=== PATIENT | male | born 1945 | race African-American/Black ===

== ENCOUNTER → 2017-02-25 | Outpatient (CLI) | payer MEDICARE, BC ==
--- NOTE | 2017-02-25 10:40 | RADIOLOGY REPORT (SQ) ---
EXAM DESCRIPTION: CT CHEST WITH; CT ABD/PELVIS WITH IV ONLY COMPLETED DATE/TIME: 02/25/2017 10:01 am REASON FOR STUDY: LEUKEMIA C91.10 CHRONIC LYMPHOCYTIC LEUK OF B-CELL TYPE NOT ACHIEVE R COMPARISON: CT abdomen pelvis 05/30/2015 CONTRAST TYPE AND DOSE: 75mL Isovue 300- low osmolar. RENAL FUNCTION: Creatinine 1.6 TECHNIQUE: CT scan of the chest performed using helical scanning technique with dynamic intravenous contrast injection. Images reviewed with lung, soft tissue and bone windows. Reconstructed coronal a nd sagittal MPR images reviewed. All images stored on PACS. CT scan of the abdomen and pelvis performed with intravenous and without oral contrastusing helical s raul technique with dynamic intravenous contrast injection. Images reviewed with lung, soft tissu e and bone windows. Reconstructed coronal and sagittal MPR images reviewed. Delayed images for eval uation of the urinary system also acquired and evaluated. All images stored on PACS. All CT scanners at this facility use dose modulation, iterative reconstruction, and/or weight based d osing when appropriate to reduce radiation dose to as low as reasonably achievable (ALARA). [facility]: Dose Right [facility]: CareDose [facility]: Dose Right [facility]: Teradose 4D [facility]: [employer] RADIATION DOSE: 4.88; 17.55 mGy. LIMITATIONS: No oral contrast FINDINGS: CHEST: LUNGS AND PLEURA: No opacities, nodules, masses. No pneumothorax. No effusions. HILAR AND MEDIASTINAL STRUCTURES: No identified masses or abnormal nodes. HEART AND VASCULAR STRUCTURES: No aneurysm or dissection. No central pulmonary emboli. No pericardi al effusion. Very heavy coronary artery calcifications. HARDWARE: None. THYROID AND OTHER SOFT TISSUES: Thyroid unremarkable. In the right axilla, a 12 x 11 mm lymph node i s present on axial image 19 (was 7 x 5 mm on 05/30/2015). In the left axilla on image 19, a 10 x 9 mm lymph node is present (was 3 to 4 mm in diameter 05/30/2015). BONES: No significant finding. OTHER: No other significant finding. ABDOMEN AND PELVIS: LIVER: Normal size. No masses or dilated ducts. SPLEEN: Normal size. No focal lesions. PANCREAS: No masses. No significant calcifications. No adjacent inflammation or peripancreatic fluid collections. Pancreatic duct not dilated. GALLBLADDER: Calcified stones layer dependently in the gallbladder. ADRENAL GLANDS: No significant masses or asymmetry. RIGHT KIDNEY AND URETER: No solid masses. No significant calcification. No hydronephrosis or hydroure ter. 1 cm cyst right mid-pole kidney. LEFT KIDNEY AND URETER: No solid masses. No significant calcification. No hydronephrosis or hydrouret er. AORTA AND VESSELS: No aneurysm. No dissection. Renal arteries, SMA, celiac without stenosis. RETROPERITONEUM: No retroperitoneal adenopathy, hemorrhage or masses. BOWEL AND PERITONEAL CAVITY: No masses or inflammatory changes. No free fluid or peritoneal masses. APPENDIX: Normal. ABDOMINAL WALL: Soft tissue stranding in the right and left anterior abdominal wall axial image 44, l ikely from subcutaneous injections. Small umbilical hernia containing nonobstructed small bowel loop s. BONES: No significant or acute findings. PELVIS: Enlarged prostate indents the bladder base, best shown on delay series 8, images 78-84. IMPRESSION: Small axillary lymph nodes bilaterally. Post cholecystectomy. Small ventral hernia. No intra-abdominal or pelvic adenopathy. TECHNICAL DOCUMENTATION: JOB ID: [id number] Quality ID # 436: Final reports with documentation of one or more dose reduction techniques (e.g., Au tomated exposure control, adjustment of the mA and/or kV according to patient size, use of iterative reconstruction technique) 2010 [employer]- All Rights Reserved
== END ==
LOC: RAD 08:43
PROVIDERS: ATTEND Internal Medicine Medical Oncology
DX: C91.10 Chronic lymphocytic leukemia of B-cell type not having achieved remission (principal); K43.9 Ventral hernia without obstruction or gangrene
CPT/HCPCS: 71260; 74177; 82565

== ENCOUNTER → 2017-10-05 | Outpatient (CLI) | payer MEDICARE, BC ==
[2017-10-05 09:34] VITALS: BP 116/79
[2017-10-05 09:56] LABS: INTERNATIONAL RATION (INR) 0.85; PROTHROMBIN TIME 12.3 SEC (11.4-15.4)
[2017-10-05 09:57] LABS: HEMATOCRIT 47.5 % (37.9-51.0); HEMOGLOBIN 14.9 g/dL (13.5-17.0); MEAN CORPUSCULAR HEMOGLOBIN 25.8 pg (27.0-33.4); MEAN CORPUSCULAR HGB CONC 31.5 g/dL (32.0-36.0); MEAN CORPUSCULAR VOLUME 82 fl (80-97); PARTIAL THROMBOPLASTIN TIME 26.8 SEC (23.5-35.8); PLATELET COUNT 146 10^3/uL (150-450); RED CELL DISTRIBUTION WIDTH 15.3 % (11.5-14.0)
[2017-10-05 10:10] LABS: BLOOD UREA NITROGEN 24 mg/dL (7-20)
[2017-10-05 10:49] LABS: WHITE BLOOD COUNT 70.4 10^3/uL (4.0-10.5)
--- NOTE | 2017-10-05 14:34 | RADIOLOGY REPORT (SQ) ---
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 CONTRAST TYPE AND DOSE: contrast/concentration: Isovue 300.00 mg/ml; Total Contrast Delivered: 84.0 ml; Total Saline Delivered: 69.0 ml RENAL FUNCTION: Creatinine 1.4 TECHNIQUE: CT scan of the chest performed using helical scanning technique with dynamic intravenous contrast injection. Images reviewed with lung, soft tissue and bone windows. Reconstructed coronal a nd sagittal MPR images reviewed. All images stored on PACS. CT scan of the abdomen and pelvis performed with intravenous and with oral contrastusing helical scan brennan technique with dynamic intravenous contrast injection. Images reviewed with lung, soft tissue a nd bone windows. Reconstructed coronal and sagittal MPR images reviewed. Delayed images for evaluat ion of the urinary system also acquired and evaluated. All images stored on PACS. All CT scanners at this facility use dose modulation, iterative reconstruction, and/or weight based d osing when appropriate to reduce radiation dose to as low as reasonably achievable (ALARA). [facility]: Dose Right [facility]: CareDose [facility]: Dose Right [facility]: Teradose 4D [facility]: [employer] RADIATION DOSE: CT Rad equipment meets quality standard of care and radiation dose reduction techniq ues were employed. CTDIvol: 4.8 - 5.9 mGy. DLP: 824 mGy-cm. . LIMITATIONS: None. FINDINGS: CHEST: LUNGS AND PLEURA: No opacities, nodules, masses. No pneumothorax. No effusions. HILAR AND MEDIASTINAL STRUCTURES: Increase in size and number of supraclavicular and bilateral axilla ry adenopathy. Index right axilla lymph node at image 18, 1.4 x 1.3 cm in size (was 1.2 x 1.1 cm on 02/25/2017). Index left axillary lymph node axial image 16 1.3 x 1.1 cm in size (was 1.0 x 0.9 cm in size on 02/25/2017. HEART AND VASCULAR STRUCTURES: No aneurysm or dissection. No central pulmonary emboli. No pericardi al effusion. Very heavily calcified coronary arteries. HARDWARE: None. THYROID : No masses. BONES: No significant finding. OTHER: No other significant finding. ABDOMEN AND PELVIS: LIVER: Normal size. No masses. No dilated ducts. SPLEEN: Normal size. No focal lesions. PANCREAS: No masses. No significant calcifications. No adjacent inflammation or peripancreatic fluid collections. Pancreatic duct not dilated. GALLBLADDER: Gallstones. No inflammatory changes to suggest cholecystitis. ADRENAL GLANDS: No significant masses or asymmetry. RIGHT KIDNEY AND URETER: No solid masses. 1 cm cyst right mid-pole kidney. No significant calcifica tion. No hydronephrosis or hydroureter. LEFT KIDNEY AND URETER: No solid masses. No significant calcification. No hydronephrosis or hydrouret er. AORTA AND VESSELS: No aneurysm. No dissection. Renal arteries, SMA, celiac without stenosis. RETROPERITONEUM: No retroperitoneal adenopathy, hemorrhage or masses. BOWEL AND PERITONEAL CAVITY: No masses or inflammatory changes. No free fluid or peritoneal masses. APPENDIX: Normal. ABDOMINAL WALL: No hernia. There is stranding of the periumbilical fat in the anterior abdominal wal l, chronic in appearance. This could be post therapeutic change or could be related to subcutaneous injection BONES: No significant or acute findings. PELVIS: Prostate is enlarged, 7 cm in greatest diameter, indenting the bladder base. No pelvic mike opathy. No free pelvic fluid. IMPRESSION: Increase in size of multiple axillary, supraclavicular, and lower cervical lymph nodes c ompared to previous studies No adenopathy or worrisome soft tissue masses over the abdomen or pelvis. TECHNICAL DOCUMENTATION: JOB ID: [id number] Quality ID # 436: Final reports with documentation of one or more dose reduction techniques (e.g., Au tomated exposure control, adjustment of the mA and/or kV according to patient size, use of iterative reconstruction technique) 2010 [employer]- All Rights Reserved
== END ==
LOC: RAD 09:02 → EDSTATUS 10:45
PROVIDERS: ATTEND Internal Medicine Medical Oncology
DX: C91.10 Chronic lymphocytic leukemia of B-cell type not having achieved remission (principal); I25.10 Atherosclerotic heart disease of native coronary artery without angina pectoris; E78.5 Hyperlipidemia, unspecified
CPT/HCPCS: 36415; 71260; 74177; 82565; 84520; 85027; 85610; 85730

== ENCOUNTER 2017-10-07 06:53 | Day surgery (SDC) | payer MEDICARE, BC ==
[2017-10-07 08:15] LABS: HEMATOCRIT 45.7 % (37.9-51.0); HEMOGLOBIN 14.5 g/dL (13.5-17.0); MEAN CORPUSCULAR HEMOGLOBIN 26.1 pg (27.0-33.4); MEAN CORPUSCULAR HGB CONC 31.8 g/dL (32.0-36.0); MEAN CORPUSCULAR VOLUME 82 fl (80-97); PLATELET COUNT 119 10^3/uL (150-450); RED BLOOD COUNT 5.56 10^6/uL (4.35-5.55); RED CELL DISTRIBUTION WIDTH 15.2 % (11.5-14.0)
[2017-10-07 08:19] LABS: WHITE BLOOD COUNT 69.4 10^3/uL (4.0-10.5)
[2017-10-07 08:21] LABS: PROTHROMBIN TIME 12.8 SEC (11.4-15.4)
[2017-10-07 08:22] LABS: PARTIAL THROMBOPLASTIN TIME 26.6 SEC (23.5-35.8)
[2017-10-07 08:31] LABS: BLOOD UREA NITROGEN 27 mg/dL (7-20); GLUCOSE 188 mg/dL (75-110)
[2017-10-07 08:44] LABS: ABSOLUTE LYMPHOCYTES# (MANUAL) 63.2 10^3/uL (0.5-4.7); ABSOLUTE MONOCYTES # (MANUAL) 2.8 10^3/uL (0.1-1.4); ABSOLUTE NEUTROPHILS# (MANUAL) 3.5 10^3/uL (1.7-8.2); BASOPHILS % (MANUAL) 0 % (0-2); EOSINOPHILS % (MANUAL) 0 % (0-6); LYMPHOCYTES % (MANUAL) 91 % (13-45); MONOCYTES % (MANUAL) 4 % (3-13); SEGMENTED NEUTROPHILS % (MAN) 5 % (42-78); TOTAL CELLS COUNTED 100
[2017-10-07 08:45] LABS: OVALOCYTES 1+; PLATELET COMMENT DECREASED; POIKILOCYTOSIS 1+
[2017-10-07] MEDS ORDERED: FENTANYL CITRATE INJ/PF 100 MCG/2 ML AMPUL ONE (10:41)
[2017-10-07] MEDS ORDERED: MIDAZOLAM 2 MG/2 ML INJ ONE (10:41)
--- NOTE | 2017-10-07 11:50 | RADIOLOGY REPORT (SQ) ---
EXAM DESCRIPTION: CT BIOPSY BONE DEEP; CT NEEDLE PLACEMENT COMPLETED DATE/TIME: 10/07/2017 11:19 am; 10/07/2017 11:16 am REASON FOR STUDY: CHRONIC LYMPHOCYTIC LEUKEMIA C91.10 CHRONIC LYMPHOCYTIC LEUK OF B-CELL TYPE NOT A FLAVIO Quezada Z79.899 OTHER RESIDENTIAL (CURRENT) DRUG THERAPY Z79.01 RESIDENTIAL (CURRENT) USE OF ANTICOAGU LANTS COMPARISON: None. TECHNIQUE: CT guided biopsy of the posterior right iliac crest performed with conscious sedation. CT Fluoroscopy Time: [address] scanners at this facility use dose modulation, iterative reconstruction, and/or weight based d osing when appropriate to reduce radiation dose to as low as reasonably achievable (ALARA). [facility]: Dose Right [facility]: CareDose [facility]: Dose Right [facility]: Teradose 4D [facility]: [employer] RADIATION DOSE: mGy. FINDINGS: The procedure was discussed with the patient and the patient agreed to the procedure. Prio r to the procedure, a time out was performed to verify the patient's identity and planned procedure. IV sedation was administered and physician direction by the registered nurse using 1 milligrams of Ve rsed and 75 micrograms of fentanyl. Physiologic monitoring was provided before, during, and after sed ation. The total sedation time was 30 minutes. Documentation face to face time, the performing proceduralist, spent monitoring the patient: [address] scanning was performed to localize the percutaneous site for the biopsy approach. After sterile skin prep and local lidocaine for skin and deep tissue anesthesia, a 14 gauge bone biop sy needle was used to obtain an aspirate and core of medullary bone from the posterior right iliac cr est. The biopsy tissue was submitted to Mana from cytology. There were no immediate complications. Pathology is pending at the time of dictation. IMPRESSION: CT GUIDED BIOPSY OF THE POSTERIOR RIGHT ILIAC CREST PERFORMED WITHOUT IMMEDIATE COMPLICA TION. PATHOLOGY PENDING. COMMENT: Quality ID 145: Final reports for procedures using fluoroscopy that document radiation exp osure indices, or exposure time and number of fluorographic images (if radiation exposure indices are not available) Patient medication list reviewed: Yes- Quality ID# [id number]:Eligible professional attests to documenting i n the medical record they obtained, updated, or reviewed the patient's current medications.. TECHNICAL DOCUMENTATION: JOB ID: [id number] Quality ID# 436: Final reports with documentation of one or more dose reduction techniques (e.g., Aut omated exposure control, adjustment of the mA and/or kV according to patient size, use of iterative r econstruction technique) 2010 [employer]- All Rights Reserved
--- NOTE | 2017-10-07 11:50 | RADIOLOGY REPORT (SQ) ---
EXAM DESCRIPTION: CT BIOPSY BONE DEEP; CT NEEDLE PLACEMENT COMPLETED DATE/TIME: 10/07/2017 11:19 am; 10/07/2017 11:16 am REASON FOR STUDY: CHRONIC LYMPHOCYTIC LEUKEMIA C91.10 CHRONIC LYMPHOCYTIC LEUK OF B-CELL TYPE NOT A FLAVIO Quezada Z79.899 OTHER [facility] (CURRENT) DRUG THERAPY Z79.01 [facility] (CURRENT) USE OF ANTICOAGU LANTS COMPARISON: None. TECHNIQUE: CT guided biopsy of the posterior right iliac crest performed with conscious sedation. CT Fluoroscopy Time: [address] scanners at this facility use dose modulation, iterative reconstruction, and/or weight based d osing when appropriate to reduce radiation dose to as low as reasonably achievable (ALARA). [facility]: Dose Right [facility]: CareDose [facility]: Dose Right [facility]: Teradose 4D [facility]: [employer] RADIATION DOSE: mGy. FINDINGS: The procedure was discussed with the patient and the patient agreed to the procedure. Prio r to the procedure, a time out was performed to verify the patient's identity and planned procedure. IV sedation was administered and physician direction by the registered nurse using 1 milligrams of Ve rsed and 75 micrograms of fentanyl. Physiologic monitoring was provided before, during, and after sed ation. The total sedation time was 30 minutes. Documentation face to face time, the performing proceduralist, spent monitoring the patient: [address] scanning was performed to localize the percutaneous site for the biopsy approach. After sterile skin prep and local lidocaine for skin and deep tissue anesthesia, a 14 gauge bone biop sy needle was used to obtain an aspirate and core of medullary bone from the posterior right iliac cr est. The biopsy tissue was submitted to Mana from cytology. There were no immediate complications. Pathology is pending at the time of dictation. IMPRESSION: CT GUIDED BIOPSY OF THE POSTERIOR RIGHT ILIAC CREST PERFORMED WITHOUT IMMEDIATE COMPLICA TION. PATHOLOGY PENDING. COMMENT: Quality ID 145: Final reports for procedures using fluoroscopy that document radiation exp osure indices, or exposure time and number of fluorographic images (if radiation exposure indices are not available) Patient medication list reviewed: Yes- Quality ID# [id number]:Eligible professional attests to documenting i n the medical record they obtained, updated, or reviewed the patient's current medications.. TECHNICAL DOCUMENTATION: JOB ID: [id number] Quality ID# 436: Final reports with documentation of one or more dose reduction techniques (e.g., Aut omated exposure control, adjustment of the mA and/or kV according to patient size, use of iterative r econstruction technique) 2010 [employer]- All Rights Reserved
[2017-10-07 13:39] VITALS: BP 120/73
== END 2017-10-07 13:30 | disposition home or self-care (01) ==
LOC: RAD 06:53
PROVIDERS: ATTEND Internal Medicine Medical Oncology
PROC: 0QB23ZX Excision of Right Pelvic Bone, Percutaneous Approach, Diagnostic (ICD-10-PCS; principal; 2017-10-07)
DX: C91.10 Chronic lymphocytic leukemia of B-cell type not having achieved remission (principal); Z79.899 Other long term (current) drug therapy; Z79.01 Long term (current) use of anticoagulants
CPT/HCPCS: 36415; 84520; 82565; 82947; 85025; 85610; 85730; 77012; 20225; J2250; J3010

== ENCOUNTER → 2018-06-23 | Outpatient (CLI) | payer MEDICARE, BC ==
--- NOTE | 2018-06-23 14:39 | RADIOLOGY REPORT (SQ) ---
EXAM DESCRIPTION: U/S RETROPERITON (RENAL/AORTA) COMPLETED DATE/TIME: 06/23/2018 2:27 pm REASON FOR STUDY: CKD II (N18.2), DIABETES (E11.9), HTN (I10) N18.2 CHRONIC KIDNEY DISEASE, STAGE 2 (MILD) COMPARISON: CT abdomen pelvis 10/05/2017 TECHNIQUE: Dynamic and static grayscale images acquired of the kidneys and bladder and recorded on P ACS. Additional selected color Doppler and spectral images recorded. LIMITATIONS: None. FINDINGS: RIGHT KIDNEY: Normal size, 11.4 cm. Normal echogenicity. No solid or suspicious masses. No hydronephrosis. No calcifications. LEFT KIDNEY: Normal size, 11.1 cm. Normal echogenicity. No solid or suspicious masses. No hydronephr osis. No calcifications. BLADDER: No masses. OTHER FINDINGS: Enlarged prostate, 7 x 5 x 4 cm in size, similar compared to CT abdomen and pelvis 10/05/2017 IMPRESSION: No hydronephrosis. Normal size kidneys. TECHNICAL DOCUMENTATION: JOB ID: [id number] 1876 [employer]- All Rights Reserved Reading location - IP/workstation name: [facility], [facility]
== END ==
LOC: RAD 13:33
PROVIDERS: ATTEND Internal Medicine Nephrology
DX: I12.9 Hypertensive chronic kidney disease with stage 1 through stage 4 chronic kidney disease, or unspecified chronic kidney disease (principal); N18.2 Chronic kidney disease, stage 2 (mild); E11.22 Type 2 diabetes mellitus with diabetic chronic kidney disease; C91.90 Lymphoid leukemia, unspecified not having achieved remission
CPT/HCPCS: 76770

== ENCOUNTER → 2018-07-17 | Outpatient (CLI) | payer MEDICARE, BC ==
[2018-07-17 08:58] LABS: HEMATOCRIT 44.5 % (37.9-51.0); HEMOGLOBIN 14.7 g/dL (13.5-17.0); MEAN CORPUSCULAR HEMOGLOBIN 26.8 pg (27.0-33.4); MEAN CORPUSCULAR HGB CONC 33.1 g/dL (32.0-36.0); MEAN CORPUSCULAR VOLUME 81 fl (80-97); PLATELET COUNT 128 10^3/uL (150-450); WHITE BLOOD COUNT 6.9 10^3/uL (4.0-10.5)
[2018-07-17 09:02] LABS: APPEARANCE,URINE CLEAR; BILIRUBIN,URINE NEGATIVE (NEGATIVE); COLOR,URINE YELLOW; GLUCOSE, URINE >=500 mg/dL (NEGATIVE); KETONES,URINE NEGATIVE (NEGATIVE); LEUKOCYTE ESTERASE,URINE NEGATIVE (NEGATIVE); NITRITE,URINE NEGATIVE (NEGATIVE); PROTEIN,URINE 100 mg/dL (NEGATIVE); URINE SPECIFIC GRAVITY 1.024; UROBILINOGEN,URINE NEGATIVE mg/dL (<2.0)
[2018-07-17 09:23] LABS: ALBUMIN 4.4 g/dL (3.5-5.0); ANION GAP 12 (5-19); BLOOD UREA NITROGEN 25 mg/dL (7-20); CALCIUM 9.9 mg/dL (8.4-10.2); CARBON DIOXIDE 27 mmol/L (22-30); CHLORIDE 101 mmol/L (98-107); GLUCOSE 131 mg/dL (75-110); PHOSPHORUS 3.8 mg/dL (2.5-4.5); POTASSIUM 4.4 mmol/L (3.6-5.0); SODIUM 140.3 mmol/L (137-145)
[2018-07-17 09:49] LABS: ABSOLUTE LYMPHOCYTES# (MANUAL) 3.6 10^3/uL (0.5-4.7); ABSOLUTE MONOCYTES # (MANUAL) 0.6 10^3/uL (0.1-1.4); ABSOLUTE NEUTROPHILS# (MANUAL) 2.7 10^3/uL (1.7-8.2); BASOPHILS % (MANUAL) 0 % (0-2); EOSINOPHILS % (MANUAL) 0 % (0-6); LYMPHOCYTES % (MANUAL) 45 % (13-45); MONOCYTES % (MANUAL) 9 % (3-13); SEGMENTED NEUTROPHILS % (MAN) 39 % (42-78); TOTAL CELLS COUNTED 100
[2018-07-17 09:50] LABS: ANISOCYTOSIS SLIGHT; HYPOCHROMASIA SLIGHT; PLATELET COMMENT DECREASED
[2018-07-19 03:36] LABS: CREATININE URINE 114.1 mg/dL (Not Estab.); MICROALBUMIN URINE 242.9 ug/mL (Not Estab.)
== END ==
LOC: OD 08:13
PROVIDERS: ATTEND Internal Medicine Nephrology
DX: N18.2 Chronic kidney disease, stage 2 (mild) (principal); E11.9 Type 2 diabetes mellitus without complications; C91.90 Lymphoid leukemia, unspecified not having achieved remission; I10 Essential (primary) hypertension
CPT/HCPCS: 36415; 80048; 81001; 82040; 82043; 82306; 82570; 83970; 84100; 85025

== ENCOUNTER → 2018-12-27 | Outpatient (CLI) | payer MEDICARE, BC ==
[2018-12-27 09:48] LABS: APPEARANCE,URINE CLEAR; BILIRUBIN,URINE NEGATIVE (NEGATIVE); COLOR,URINE YELLOW; GLUCOSE, URINE >=500 mg/dL (NEGATIVE); KETONES,URINE NEGATIVE (NEGATIVE); LEUKOCYTE ESTERASE,URINE NEGATIVE (NEGATIVE); NITRITE,URINE NEGATIVE (NEGATIVE); PROTEIN,URINE 30 mg/dL (NEGATIVE); URINE SPECIFIC GRAVITY 1.024; UROBILINOGEN,URINE NEGATIVE mg/dL (<2.0)
[2018-12-27 10:27] LABS: ANION GAP 9 (5-19); BLOOD UREA NITROGEN 35 mg/dL (7-20); CALCIUM 10.4 mg/dL (8.4-10.2); CARBON DIOXIDE 29 mmol/L (22-30); CHLORIDE 101 mmol/L (98-107); GLUCOSE 147 mg/dL (75-110); POTASSIUM 4.4 mmol/L (3.6-5.0); SODIUM 139.1 mmol/L (137-145)
[2018-12-28 14:38] LABS: CREATININE URINE 90.1 mg/dL (Not Estab.); MICROALBUMIN URINE 174.1 ug/mL (Not Estab.)
== END ==
LOC: OD 08:54
PROVIDERS: ATTEND Internal Medicine Nephrology
DX: I12.9 Hypertensive chronic kidney disease with stage 1 through stage 4 chronic kidney disease, or unspecified chronic kidney disease (principal); E11.22 Type 2 diabetes mellitus with diabetic chronic kidney disease; N18.2 Chronic kidney disease, stage 2 (mild); R80.9 Proteinuria, unspecified
CPT/HCPCS: 36415; 80048; 81001; 82043; 82306; 82570

== ENCOUNTER 2019-04-06 11:32 | Observation (INO) | payer MEDICARE, BC ==
--- NOTE | 2019-04-06 12:00 | ER Document Report ---
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 Patient reports his calcium was 12.2. He also had an elevated white blood count however he is a CLL patient. Patient is asymptomatic and denies any complaints today. Exam: Patient alert, oriented, answering all questions appropriately. Ambulates with a steady gait. I have greeted and performed a rapid initial assessment of this patient. A comprehensive ED assessment and evaluation of the patient, analysis of test results and completion of the medical decision making process will be conducted by additional ED providers. I have specifically instructed the patient or family members with the patient to immediately return to any nursing staff should anything change in the patient's condition or with their chief complaint. This medical record was dictated with voice recognizing software. There may be grammatical, syntax errors that are unintended. TRAVEL OUTSIDE OF THE [place] IN LAST 30 DAYS: No - Related Data Allergies/Adverse Reactions: No Known Allergies Allergy (Verified 04/06/19 11:34) Past Medical History - Past Medical History Cardiac Medical History: Reports: Hx Coronary Artery Disease - CHOLESTEROL ELEVATED, Hx Hypertension - CONTROLLED Denies: Hx Heart Attack Pulmonary Medical History: Denies: Hx Asthma, Hx Bronchitis, Hx COPD, Hx Pneumonia Neurological Medical History: Denies: Hx Cerebrovascular Accident, Hx Seizures GI Medical History: Denies: Hx Hepatitis, Hx Hiatal Hernia, Hx Ulcer Musculoskeltal Medical History: Reports Hx Arthritis Infectious Medical History: Denies: Hx Hepatitis Past Surgical History: Denies: Hx Open Heart Surgery, Hx Pacemaker - Immunizations Hx Diphtheria, Pertussis, Tetanus Vaccination: No History of Influenza Vaccine for 06/2017 - 11/2017 Season: Yes Physical Exam - Vital signs Vitals: Temp Pulse Resp BP Pulse Ox 97.7 F 98 16 126/67 H 100 04/06/19 11:34 04/06/19 11:34 04/06/19 11:34 04/06/19 11:34 04/06/19 11:34 Course - Vital Signs Vital signs: Temp Pulse Resp BP Pulse Ox 97.7 F 98 16 126/67 H 100 04/06/19 11:34 04/06/19 11:34 04/06/19 11:34 04/06/19 11:34 04/06/19 11:34 Doctor's Discharge - Discharge Referrals: SANAM DAS MD [Primary Care Provider] - Follow up as needed
[2019-04-06 12:33] LABS: HEMATOCRIT 45.5 % (37.9-51.0); HEMOGLOBIN 14.2 g/dL (13.5-17.0); MEAN CORPUSCULAR HEMOGLOBIN 24.8 pg (27.0-33.4); MEAN CORPUSCULAR HGB CONC 31.2 g/dL (32.0-36.0); MEAN CORPUSCULAR VOLUME 80 fl (80-97); RED BLOOD COUNT 5.72 10^6/uL (4.35-5.55); RED CELL DISTRIBUTION WIDTH 15.9 % (11.5-14.0)
[2019-04-06 12:48] LABS: ALANINE AMINOTRANSFERASE 70 U/L (21-72); ALBUMIN 4.6 g/dL (3.5-5.0); ALKALINE PHOSPHATASE 85 U/L (38-126); ANION GAP 10 (5-19); ASPARTATE AMINO TRANSFERASE 56 U/L (17-59); BILIRUBIN,DIRECT 0.2 mg/dL (0.0-0.4); BILIRUBIN,TOTAL 0.5 mg/dL (0.2-1.3); BLOOD UREA NITROGEN 31 mg/dL (7-20); CARBON DIOXIDE 29 mmol/L (22-30); CHLORIDE 102 mmol/L (98-107); GLUCOSE 117 mg/dL (75-110); POTASSIUM 4.4 mmol/L (3.6-5.0); SODIUM 141.4 mmol/L (137-145); TOTAL PROTEIN 7.4 g/dL (6.3-8.2)
[2019-04-06 12:50] LABS: PLATELET COUNT 72 10^3/uL (150-450)
[2019-04-06 12:57] LABS: CALCIUM 12.5 mg/dL (8.4-10.2)
[2019-04-06 12:58] LABS: ABSOLUTE LYMPHOCYTES# (MANUAL) 79.1 10^3/uL (0.5-4.7); BASOPHILS % (MANUAL) 0 % (0-2); EOSINOPHILS % (MANUAL) 0 % (0-6); LYMPHOCYTES % (MANUAL) 92 % (13-45); MONOCYTES % (MANUAL) 0 % (3-13); SEGMENTED NEUTROPHILS % (MAN) 8 % (42-78); TOTAL CELLS COUNTED 100
[2019-04-06 13:00] LABS: PLATELET COMMENT DECREASED
[2019-04-06 13:01] LABS: ANISOCYTOSIS SLIGHT; OVALOCYTES SLIGHT; PLATELET LARGE PRESENT; TEAR DROP CELLS SLIGHT
[2019-04-06] MEDS ORDERED: NORMAL SALINE 1000 ML 1,000 ML IV ONE (13:27)
--- NOTE | 2019-04-06 13:53 | ER Document Report ---
ED General - General Chief Complaint: Abnormal Lab Results Stated Complaint: ABNORMAL LABS Time Seen by Provider: 04/06/19 11:57 Mode of Arrival: Ambulatory Notes: Patient was instructed to come to the emergency department because he had some abnormal outpatient labs. Patient had blood drawn this morning and his phys ician called him to tell him to come to the emergency department. He had an elevated WBC of 80,000, but the patient is known to have chronic lymphocytic leukemia. He has been under the care of Dr. Laws, local oncologist, but the patient says he has not had a chemo treatment since last year. Patient also was told that his calcium is high and it was 12.7. Speaking with Dr. Merlos, patient's primary care provider, patient had a WBC of about 60,000 a couple of weeks ago and his calcium was in the low 11's. Patient denies having any symptoms. No upset stomach or nausea or vomiting. No muscular jerks or twitches. No loss of consciousness. Denies any chest pains. TRAVEL OUTSIDE OF THE [place] IN LAST 30 DAYS: No - Related Data Allergies/Adverse Reactions: No Known Allergies Allergy (Verified 04/06/19 11:34) Past Medical History - General Information source: Patient - Social History Smoking Status: Never Smoker Chew tobacco use (# tins/day): No Frequency of alcohol use: None Drug Abuse: None Family History: Reviewed & Not Pertinent Patient has suicidal ideation: No Patient has homicidal ideation: No - Past Medical History Cardiac Medical History: Reports: Hx Coronary Artery Disease - CHOLESTEROL ELEVATED, Hx Hypertension - CONTROLLED Denies: Hx Heart Attack Musculoskeletal Medical History: Reports Hx Arthritis Infectious Medical History: Denies: Hx Hepatitis Past Surgical History: Reports: Hx Cardiac Catheterization - Immunizations Hx Diphtheria, Pertussis, Tetanus Vaccination: No Review of Systems - Review of Systems Notes: REVIEW OF SYSTEMS: CONSTITUTIONAL : Denies fever. EENT: Denies eye, ear, nose or mouth or throat pain or other symptoms. CARDIOVASCULAR: Denies chest pain. RESPIRATORY: Denies cough, chest congestion, or shortness of breath. GASTROINTESTINAL: Denies abdominal pain or nausea, vomiting, or diarrhea. GENITOURINARY: Denies difficulty or painful urinating, urinary frequency, blood in urine. MUSCULOSKELETAL: Denies back or neck pain. Denies joint pain or swelling. SKIN: Denies rash or skin lesions. NEUROLOGICAL: Denies LOC or altered mental status. Denies headache. Denies sensory loss or motor deficits. ALL OTHER SYSTEMS REVIEWED AND NEGATIVE. Physical Exam - Vital signs Vitals: Temp Pulse Resp BP Pulse Ox 97.7 F 98 16 126/67 H 100 04/06/19 11:34 04/06/19 11:34 04/06/19 11:34 04/06/19 11:34 04/06/19 11:34 Interpretation: Normal Notes: PHYSICAL EXAMINATION: GENERAL: Well-appearing, in no acute distress. Vital signs are all normal. HEAD: Atraumatic, normocephalic. EYES: Pupils equal round and reactive to light, extraocular movements intact. ENT: oropharynx clear without exudates. Moist mucous membranes. NECK: Normal range of motion, supple. LUNGS: Breath sounds clear and equal bilaterally. HEART: Regular rate and rhythm without murmurs. ABDOMEN: Soft, nontender. No guarding or rebound. No masses. BACK: No tenderness throughout entire back. EXTREMITIES: Normal range of motion without pain. NEUROLOGICAL: Normal speech, normal gait. Normal sensory, motor, and reflex exams. Awake, alert, and oriented x3. Cranial nerves normal. PSYCH: Normal mood, normal affect. SKIN: Warm, dry, no rashes. Course - Re-evaluation Re-evalutation: 04/06/19 13:[address] Merlos and he will admit the patient for saline hydration to try to lower the calcium. He will follow the patient's WBC along with his oncologist. - Vital Signs Vital signs: Temp Pulse Resp BP Pulse Ox 97.7 F 98 15 104/66 95 04/06/19 11:34 04/06/19 11:34 04/06/19 13:01 04/06/19 13:01 04/06/19 13:01 - Laboratory Result Diagrams: 04/06/19 12:15 04/06/19 12:15 Laboratory results interpreted by me: 04/06/19 04/06/19 12:15 12:15 WBC 86.0 H* RBC 5.72 H MCH 24.8 L MCHC 31.2 L RDW 15.9 H Plt Count 72 L Seg Neuts % (Manual) 8 L Lymphocytes % (Manual) 92 H Monocytes % (Manual) 0 L Abs Lymphs (Manual) 79.1 H Abs Monocytes (Manual) 0.0 L BUN 31 H Creatinine 1.68 H Est GFR ( Amer) 49 L Est GFR (Non-Af Amer) 40 L Glucose 117 H Calcium 12.5 H* Discharge - Discharge Clinical Impression: Chronic lymphocytic leukemia, Hypercalcemia Condition: Stable Disposition: ADMITTED OBSERVATION Admitting Provider: [facility] Unit Admitted: Medical Floor
[2019-04-06] MEDS ORDERED: (PENDING PHARMACY ID) (Glimepiride [Glimepiride] 2 MG) PO SCH (17:00)
[2019-04-06] MEDS ORDERED: (PENDING PHARMACY ID) (Losartan/Hydrochlorothiazide [Hyzaar 100-12.5 Tablet] 1 EACH) PO SCH (17:00)
[2019-04-06] MEDS ORDERED: (PENDING PHARMACY ID) (Empagliflozin [Jardiance] 25 MG) PO SCH (17:00)
[2019-04-06] MEDS ORDERED: INSULIN DETEMIR 20 UNIT SQ SCH (17:00)
[2019-04-06] MEDS ORDERED: (PENDING PHARMACY ID) (Metformin Hcl [Metformin Hcl] 1,000 MG) PO SCH (17:00)
[2019-04-06] MEDS ORDERED: INSULIN GLARGINE,HUM.REC.ANLOG 1,000 UNIT/10 ML VIAL (PYX) SUBCUT ONE (17:30)
[2019-04-06 17:52] LABS: INTERNATIONAL RATION (INR) 0.92; PARTIAL THROMBOPLASTIN TIME 25.1 SEC (23.5-35.8); PROTHROMBIN TIME 12.4 SEC (11.4-15.4)
[2019-04-06 18:00] LABS: LIPASE 109.8 U/L (23-300)
[2019-04-06] MEDS: ENOXAPARIN SODIUM INJ 40 MG/0.4 ML DISP.SYRIN SUBCUT SCH (18:03)
[2019-04-06] MEDS: METOPROLOL SUCCINATE 25 MG TAB.SR.24H PO SCH (18:04)
[2019-04-06] MEDS: LOSARTAN POTASSIUM 50 MG TABLET PO SCH (18:05)
[2019-04-06] MEDS: HYDROCHLOROTHIAZIDE 12.5 MG TABLET PO SCH (18:05)
[2019-04-06] MEDS: ASPIRIN 81 MG TABLET, ENT COATED PO SCH (18:10)
[2019-04-06] MEDS: TAMSULOSIN HCL 0.4 MG CAP.SR.24H PO SCH (18:12)
[2019-04-06] MEDS: METFORMIN HCL 500 MG TABLET PO SCH (18:12)
[2019-04-06] MEDS: FAMOTIDINE 20 MG TABLET PO SCH (18:12)
[2019-04-06] MEDS: CLOPIDOGREL BISULFATE 75 MG TABLET PO SCH (18:12)
[2019-04-06] MEDS: NORMAL SALINE 1000 ML 1,000 ML IV PRN (18:12)
[2019-04-06 18:14] LABS: CREATINE KINASE MB 1.06 ng/mL (<4.55)
[2019-04-06 18:17] LABS: FREE T4 (FREE THYROXINE) 1.18 ng/dL (0.78-2.19); TROPONIN I < 0.012 ng/mL
[2019-04-06] MEDS: GLIMEPIRIDE 1 MG TABLET PO SCH (18:22)
[2019-04-06 18:31] LABS: THYROID STIMULATING HORMONE 1.85 uIU/mL (0.47-4.68)
[2019-04-06] MEDS ORDERED: PAMIDRONATE DISODIUM INJ 30 MG/10 ML VIAL IV ONE (18:35)
--- NOTE | 2019-04-06 18:45 | PDOC H&P ---
History of Present Illness Admission Date/PCP: 04/06/19 14:00 SANAM DAS MD History of Present Illness: NADIA RENTERIA is a 73 year old male, He has a history of chronic lymphocytic leukemia, diabetes mellitus type 2,, he had outpatient blood work drawn by the salesforce administrator, the serum calcium was 12, the white cell count was 85,000 because of the abnormal laboratory data, patient was called by the salesforce administrator for him to go to the emergency room in the emergency room was evaluated blood work revealed a pack acidemia with a serum calcium of 12 WBC was 8000. The intact PTH was low suggesting that the hypercalcemia is related to the CLL. But patient is not symptomatic Past Medical History Cardiac Medical History: Reports: Coronary Artery Disease - CHOLESTEROL ELEVATED, Hypertension - CONTROLLED Musculoskeltal Medical History: Reports: Arthritis Hematology: Reports: Anemia - CLL Past Surgical History Past Surgical History: Reports: Cardiac Catheterization Social History Smoking Status: Never Smoker Frequency of Alcohol Use: None Hx Recreational Drug Use: No Drugs: None Hx Prescription Drug Abuse: No Family History Family History: Reviewed & Not Pertinent Parental Family History Reviewed: Yes Children Family History Reviewed: Yes Sibling(s) Family History Reviewed.: Yes Medication/Allergy Home Medications: Aspirin [Ecotrin] 81 mg PO DAILY 08/16/14 RX: Simvastatin 40 mg PO QHS 08/16/14 Clopidogrel Bisulfate [Plavix 75 mg Tablet] 75 mg PO DAILY 04/06/19 Empagliflozin [Jardiance] 25 mg PO DAILY 04/06/19 Glimepiride 2 mg PO BIDBS 04/06/19 Insulin Detemir [Levemir] 20 unit SQ DAILY MDD 30 units 04/06/19 Losartan/Hydrochlorothiazide [Hyzaar 100-12.5 Tablet] 1 each PO DAILY 04/06/19 Metformin HCl 1,000 mg PO BIDBS 04/06/19 RX: Famotidine [Pepcid 20 mg Tablet] 20 mg PO BID 04/06/19 RX: Metoprolol Succinate [Toprol Xl 25 mg Tab.sr] 25 mg PO DAILY 04/06/19 RX: Tamsulosin HCl [Flomax 0.4 mg Cap.sr] 0.4 mg PO DAILY 04/06/19 Allergies/Adverse Reactions: No Known Allergies Allergy (Verified 04/06/19 11:34) Review of Systems Constitutional: ABSENT: chills, fever(s), headache(s), weight gain, weight loss Eyes: ABSENT: visual disturbances Ears: ABSENT: hearing changes Cardiovascular: ABSENT: chest pain, dyspnea on exertion, edema, orthropnea, palpitations Respiratory: ABSENT: cough, hemoptysis Gastrointestinal: ABSENT: abdominal pain, constipation, diarrhea, hematemesis, hematochezia, nausea, vomiting Genitourinary: ABSENT: dysuria, hematuria Musculoskeletal: ABSENT: joint swelling Integumentary: ABSENT: rash, wounds Neurological: ABSENT: abnormal gait, abnormal speech, confusion, dizziness, focal weakness, syncope Psychiatric: ABSENT: anxiety, depression, homidical ideation, suicidal ideation Endocrine: ABSENT: cold intolerance, heat intolerance, menstrual abnormalities, polydipsia, polyuria Hematologic/Lymphatic: ABSENT: easy bleeding, easy bruising, lymphadenopathy Physical Exam Vital Signs: Temp Pulse Resp BP Pulse Ox 98.5 F 85 15 105/63 99 04/06/19 16:25 04/06/19 16:25 04/06/19 16:25 04/06/19 16:25 04/06/19 16:25 Intake & Output 04/05/19 04/06/19 04/07/19 06:59 06:59 06:59 Weight 73 kg General appearance: PRESENT: no acute distress, well-developed, well-nourished Head exam: PRESENT: atraumatic, normocephalic Eye exam: PRESENT: conjunctiva pink, EOMI, PERRLA Ear exam: PRESENT: normal external ear exam Mouth exam: PRESENT: moist, tongue midline Neck exam: PRESENT: full ROM Respiratory exam: PRESENT: clear to auscultation cassandra Cardiovascular exam: PRESENT: RRR, +S1, +S2 Pulses: PRESENT: normal dorsalis pedis pul, +2 pedal pulses bilateral Vascular exam: PRESENT: normal capillary refill GI/Abdominal exam: PRESENT: normal bowel sounds, soft Rectal exam: PRESENT: deferred Neurological exam: PRESENT: alert, awake, oriented to person, oriented to place, oriented to time, oriented to situation, CN II-XII grossly intact Psychiatric exam: PRESENT: appropriate affect, normal mood Skin exam: PRESENT: dry, intact, warm Results Laboratory Results: 04/06/19 12:15 04/06/19 12:15 04/06/19 04/06/19 04/06/19 12:15 12:15 17:26 WBC 86.0 H* RBC 5.72 H Hgb 14.2 Hct 45.5 MCV 80 MCH 24.8 L MCHC 31.2 L RDW 15.9 H Plt Count 72 L Seg Neutrophils % Not Reportable Lymphocytes % Not Reportable Monocytes % Not Reportable Eosinophils % Not Reportable Basophils % Not Reportable Absolute Neutrophils Not Reportable Absolute Lymphocytes Not Reportable Absolute Monocytes Not Reportable Absolute Eosinophils Not Reportable Absolute Basophils Not Reportable Sodium 141.4 Potassium 4.4 Chloride 102 Carbon Dioxide 29 Anion Gap 10 BUN 31 H Creatinine 1.68 H Est GFR ( Amer) 49 L Est GFR (Non-Af Amer) 40 L Glucose 117 H Calcium 12.5 H* Phosphorus 4.0 Magnesium 1.7 1.7 Total Bilirubin 0.5 AST 56 ALT 70 Alkaline Phosphatase 85 Ammonia Total Protein 7.4 Albumin 4.6 Amylase 71 Lipase 109.8 TSH Free T4 PTH Intact 04/06/19 04/06/19 04/06/19 17:26 17:26 17:26 WBC RBC Hgb Hct MCV MCH MCHC RDW Plt Count Seg Neutrophils % Lymphocytes % Monocytes % Eosinophils % Basophils % Absolute Neutrophils Absolute Lymphocytes Absolute Monocytes Absolute Eosinophils Absolute Basophils Sodium Potassium Chloride Carbon Dioxide Anion Gap BUN Creatinine Est GFR ( Amer) Est GFR (Non-Af Amer) Glucose Calcium Phosphorus Magnesium Total Bilirubin AST ALT Alkaline Phosphatase Ammonia 15.7 Total Protein Albumin Amylase Lipase TSH 1.85 Free T4 1.18 PTH Intact 5.4 L 04/06/19 04/06/19 04/06/19 17:26 17:26 17:26 Creatine Kinase 69 CK-MB (CK-2) 1.06 Troponin I < 0.012 NT-Pro-B Natriuret Pep 50 Assessment & Plan - Diagnosis (1) Hypercalcemia Is this a current diagnosis for this admission?: Yes Plan: Start normal saline infusion, treat with pamidronate, the hypercalcemia is related to CLL (2) Chronic lymphocytic leukemia Is this a current diagnosis for this admission?: Yes (3) CKD stage 3 due to type 2 diabetes mellitus Is this a current diagnosis for this admission?: Yes (4) T2DM (type 2 diabetes mellitus) Qualifiers: Diabetes mellitus long-term insulin use: with parts counterman use Diabetes mellitus complication status: with kidney complications Diabetes mellitus complication detail: with chronic kidney disease Chronic kidney disease stage: stage 3 (moderate) Qualified Code(s): E11.22 - Type 2 diabetes mellitus with diabetic chronic kidney disease; N18.3 - Chronic kidney disease, stage 3 (mo derate); Z79.4 - senior care (current) use of insulin Is this a current diagnosis for this admission?: Yes
--- NOTE | 2019-04-06 19:20 | RADIOLOGY REPORT (SQ) ---
EXAM DESCRIPTION: CHEST SINGLE VIEW COMPLETED DATE/TIME: 04/06/2019 7:04 pm REASON FOR STUDY: CLL COMPARISON: None. EXAM PARAMETERS: NUMBER OF VIEWS: One view. TECHNIQUE: Single frontal radiographic view of the chest acquired. RADIATION DOSE: NA LIMITATIONS: None. FINDINGS: LUNGS AND PLEURA: No opacities, masses or pneumothorax. No pleural effusion. MEDIASTINUM AND HILAR STRUCTURES: No masses. Contour normal. HEART AND VASCULAR STRUCTURES: Heart normal in size. Normal vasculature. BONES: No acute findings. HARDWARE: None in the chest. OTHER: No other significant finding. IMPRESSION: NO ACUTE RADIOGRAPHIC FINDING IN THE CHEST. TECHNICAL DOCUMENTATION: JOB ID: [id number] [employer]- All Rights Reserved Reading location - IP/workstation name: [email or web address]
[2019-04-06] MEDS ORDERED: PAMIDRONATE DISODIUM 90 MG in NORMAL SALINE 1000 ML 1,000 ML IV ONE (20:00)
[2019-04-06] MEDS ORDERED: INSULIN GLARGINE,HUM.REC.ANLOG 1,000 UNIT/10 ML VIAL SUBCUT SCH (22:00)
[2019-04-06] MEDS: SIMVASTATIN 40 MG TABLET PO SCH (22:02)
[2019-04-06 23:06] LABS: APPEARANCE,URINE CLEAR; BILIRUBIN,URINE NEGATIVE (NEGATIVE); COLOR,URINE YELLOW; GLUCOSE, URINE >=500 mg/dL (NEGATIVE); KETONES,URINE NEGATIVE (NEGATIVE); LEUKOCYTE ESTERASE,URINE NEGATIVE (NEGATIVE); NITRITE,URINE NEGATIVE (NEGATIVE); PROTEIN,URINE 30 mg/dL (NEGATIVE); URINE SPECIFIC GRAVITY 1.021; UROBILINOGEN,URINE NEGATIVE mg/dL (<2.0)
[2019-04-07 01:08] LABS: CREATINE KINASE MB 0.84 ng/mL (<4.55)
[2019-04-07 01:11] LABS: TROPONIN I < 0.012 ng/mL
[2019-04-07 07:50] LABS: HEMATOCRIT 41.3 % (37.9-51.0); HEMOGLOBIN 12.7 g/dL (13.5-17.0); MEAN CORPUSCULAR HEMOGLOBIN 24.6 pg (27.0-33.4); MEAN CORPUSCULAR HGB CONC 30.7 g/dL (32.0-36.0); MEAN CORPUSCULAR VOLUME 80 fl (80-97); RED BLOOD COUNT 5.17 10^6/uL (4.35-5.55)
[2019-04-07 08:02] LABS: ALANINE AMINOTRANSFERASE 59 U/L (21-72); ALBUMIN 3.6 g/dL (3.5-5.0); ALKALINE PHOSPHATASE 76 U/L (38-126); ANION GAP 8 (5-19); ASPARTATE AMINO TRANSFERASE 36 U/L (17-59); BILIRUBIN,DIRECT 0.2 mg/dL (0.0-0.4); BILIRUBIN,TOTAL 0.4 mg/dL (0.2-1.3); BLOOD UREA NITROGEN 29 mg/dL (7-20); CARBON DIOXIDE 27 mmol/L (22-30); CHLORIDE 106 mmol/L (98-107); CHOLESTEROL 140.85 mg/dL (0-200); CREATINE KINASE 52 U/L (55-170); POTASSIUM 3.9 mmol/L (3.6-5.0); SODIUM 141.3 mmol/L (137-145); TOTAL PROTEIN 6.1 g/dL (6.3-8.2); TRIGLYCERIDES 152 mg/dL (<150)
[2019-04-07 08:22] LABS: DIRECT LDL 87 mg/dL (<100)
[2019-04-07 08:27] LABS: CREATINE KINASE MB 0.72 ng/mL (<4.55)
[2019-04-07 08:29] LABS: VLDL CHOLESTEROL 30.4 mg/dL (10-31)
[2019-04-07 08:30] LABS: GLUCOSE 67 mg/dL (75-110)
[2019-04-07 08:34] LABS: TROPONIN I < 0.012 ng/mL
[2019-04-07 08:56] LABS: ABSOLUTE LYMPHOCYTES# (MANUAL) 68.9 10^3/uL (0.5-4.7); BASOPHILS % (MANUAL) 0 % (0-2); EOSINOPHILS % (MANUAL) 0 % (0-6); LYMPHOCYTES % (MANUAL) 94 % (13-45); MONOCYTES % (MANUAL) 0 % (3-13); SEGMENTED NEUTROPHILS % (MAN) 6 % (42-78); TOTAL CELLS COUNTED 100
[2019-04-07 09:00] LABS: ANISOCYTOSIS SLIGHT; OVALOCYTES 1+; POIKILOCYTOSIS 1+; SMUDGE CELLS PRESENT
[2019-04-07 09:01] LABS: PLATELET COMMENT DECREASED
[2019-04-07 09:03] LABS: PLATELET COUNT 30 10^3/uL (150-450); WHITE BLOOD COUNT 73.3 10^3/uL (4.0-10.5)
[2019-04-07] MEDS: ENOXAPARIN SODIUM INJ 40 MG/0.4 ML DISP.SYRIN SUBCUT SCH (09:09)
[2019-04-07] MEDS: FAMOTIDINE 20 MG TABLET PO SCH ×2 (10:05→17:47)
[2019-04-07] MEDS: ASPIRIN 81 MG TABLET, ENT COATED PO SCH (10:05)
[2019-04-07] MEDS: CLOPIDOGREL BISULFATE 75 MG TABLET PO SCH (10:05)
[2019-04-07] MEDS: LOSARTAN POTASSIUM 50 MG TABLET PO SCH (10:06)
[2019-04-07] MEDS: HYDROCHLOROTHIAZIDE 12.5 MG TABLET PO SCH (10:06)
[2019-04-07] MEDS: METOPROLOL SUCCINATE 25 MG TAB.SR.24H PO SCH (10:07)
[2019-04-07] MEDS ORDERED: DEXTROSE 50%-WATER SYRINGE 12.5 GM/25 ML DOSE IV PRN (12:00)
[2019-04-07] MEDS ORDERED: GLUCAGON,HUMAN RECOMB 1 MG INJ IM PRN (12:00)
[2019-04-07] MEDS ORDERED: DEXTROSE 40% GEL 15 GM TUBE X 2 PO PRN (12:00)
[2019-04-07] MEDS ORDERED: DEXTROSE 50%-WATER SYRINGE 25 GM/50 ML DOSE IV PRN (12:00)
[2019-04-07] MEDS ORDERED: DEXTROSE 40% GEL 15 GM TUBE PO PRN (12:00)
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
[2019-04-07] MEDS: TAMSULOSIN HCL 0.4 MG CAP.SR.24H PO SCH ×2 (12:49→17:47)
[2019-04-07] MEDS: METFORMIN HCL 500 MG TABLET PO SCH ×2 (12:52→17:47)
[2019-04-07] MEDS: GLIMEPIRIDE 1 MG TABLET PO SCH ×2 (12:52→17:47)
[2019-04-07] MEDS: INSULIN LISPRO 100 UNIT/ML 3 ML VIAL SUBCUT SCH ×2 (17:31→21:28)
--- NOTE | 2019-04-07 20:20 | PDOC PROGRESS REPORT ---
Subjective Progress Note for:: 04/08/19 Subjective:: Patient was seen by the bedside, he was admitted for the management of hypercalcemia in the setting of chronic lymphocytic leukemia. He was treated with intravenous pamidronate the most recent calcium from today's lab is normal but he developed progressive thrombocytopenia most recent platelet count is 19,000. Initial intent was to discharge him today this was canceled because of the severe thrombocytopenia there is no of active bleed. I do not think it is nunez to discharge patient home today with progressive decline in the platelet count Reason For Visit: HYPERCALCEMIA,CLL,T2DM Physical Exam Vital Signs: Temp Pulse Resp BP Pulse Ox 98.9 F 108 H 16 129/67 H 99 04/07/19 15:10 04/07/19 19:00 04/07/19 15:10 04/07/19 15:10 04/07/19 15:10 Intake & Output 04/06/19 04/07/19 04/08/19 06:59 06:59 06:59 Intake Total 1375 684 Output Total 1275 225 Balance 100 459 Weight 61.9 kg General appearance: PRESENT: no acute distress Eye exam: PRESENT: PERRLA Respiratory exam: PRESENT: clear to auscultation cassandra Cardiovascular exam: PRESENT: +S1, +S2 GI/Abdominal exam: PRESENT: soft Neurological exam: PRESENT: alert Results Laboratory Results: 04/07/19 07:10 04/07/19 07:10 04/06/19 04/07/19 04/07/19 22:42 07:10 07:10 WBC 73.3 H* RBC 5.17 Hgb 12.7 L Hct 41.3 MCV 80 MCH 24.6 L MCHC 30.7 L RDW 16.0 H Plt Count 30 L* Seg Neutrophils % Not Reportable Lymphocytes % Not Reportable Monocytes % Not Reportable Eosinophils % Not Reportable Basophils % Not Reportable Absolute Neutrophils Not Reportable Absolute Lymphocytes Not Reportable Absolute Monocytes Not Reportable Absolute Eosinophils Not Reportable Absolute Basophils Not Reportable Sodium 141.3 Potassium 3.9 Chloride 106 Carbon Dioxide 27 Anion Gap 8 BUN 29 H Creatinine 1.44 H Est GFR ( Amer) 58 L Est GFR (Non-Af Amer) 48 L Glucose 67 L Calcium 11.0 H Total Bilirubin 0.4 AST 36 ALT 59 Alkaline Phosphatase 76 Total Protein 6.1 L Albumin 3.6 Triglycerides 152 H Cholesterol 140.85 LDL Cholesterol Direct 87 VLDL Cholesterol 30.4 HDL Cholesterol 21 L Urine Color YELLOW Urine Appearance CLEAR Urine pH 5.0 Ur Specific [place] 1.021 Urine Protein 30 H Urine Glucose (UA) >=500 H Urine Ketones NEGATIVE Urine Blood MODERATE H Urine Nitrite NEGATIVE Ur Leukocyte Esterase NEGATIVE Urine WBC (Auto) 1 04/06/19 04/06/19 04/06/19 17:26 17:26 17:26 Creatine Kinase 69 CK-MB (CK-2) 1.06 Troponin I < 0.012 NT-Pro-B Natriuret Pep 50 04/07/19 04/07/19 04/07/19 00:27 00:27 07:10 Creatine Kinase 57 52 L CK-MB (CK-2) 0.84 Troponin I < 0.012 NT-Pro-B Natriuret Pep 04/07/19 07:10 Creatine Kinase CK-MB (CK-2) 0.72 Troponin I < 0.012 NT-Pro-B Natriuret Pep Impressions: Chest X-Ray 04/06/19 16:45 IMPRESSION: NO ACUTE RADIOGRAPHIC FINDING IN THE CHEST. Assessment & Plan - Diagnosis (1) Thrombocytopenia Is this a current diagnosis for this admission?: Yes Plan: He has severe thrombocytopenia, there is no evidence of active bleeding the platelet count continues to progressively decline, he will require platelet transfusion if less than 10,000. The etiology is most likely related to the CLL (2) Hypercalcemia Is this a current diagnosis for this admission?: Yes Plan: This is resolved (3) Chronic lymphocytic leukemia Is this a current diagnosis for this admission?: Yes (4) CKD stage 3 due to type 2 diabetes mellitus Is this a current diagnosis for this admission?: Yes (5) T2DM (type 2 diabetes mellitus) Qualifiers: Diabetes mellitus senior care insulin use: with long term care phlebotomist use Diabetes mellitus complication status: with kidney complications Diabetes mellitus complication detail: with chronic kidney disease Chronic kidney disease stage: stage 3 (moderate) Qualified Code(s): E11.22 - Type 2 diabetes mellitus with diabetic chronic kidney disease; N18.3 - Chronic kidney disease, stage 3 (moderate); Z79.4 - exterminator helper termite (current) use of insulin Is this a current diagnosis for this admission?: Yes
[2019-04-07] MEDS: SIMVASTATIN 40 MG TABLET PO SCH (21:29)
[2019-04-07] MEDS ORDERED: INSULIN GLARGINE,HUM.REC.ANLOG 1,000 UNIT/10 ML VIAL (PYX) SUBCUT ONE (22:00)
[2019-04-07] MEDS: NORMAL SALINE 1000 ML 1,000 ML IV PRN (23:53)
[2019-04-08 07:27] LABS: HEMATOCRIT 40.8 % (37.9-51.0); HEMOGLOBIN 12.5 g/dL (13.5-17.0); MEAN CORPUSCULAR HEMOGLOBIN 24.6 pg (27.0-33.4); MEAN CORPUSCULAR HGB CONC 30.8 g/dL (32.0-36.0); MEAN CORPUSCULAR VOLUME 80 fl (80-97); RED BLOOD COUNT 5.09 10^6/uL (4.35-5.55)
[2019-04-08 07:32] LABS: WHITE BLOOD COUNT 81.5 10^3/uL (4.0-10.5)
[2019-04-08 07:33] LABS: PLATELET COUNT 19 10^3/uL (150-450)
[2019-04-08 07:38] LABS: ALANINE AMINOTRANSFERASE 49 U/L (21-72); ALBUMIN 3.4 g/dL (3.5-5.0); ALKALINE PHOSPHATASE 73 U/L (38-126); ANION GAP 7 (5-19); ASPARTATE AMINO TRANSFERASE 31 U/L (17-59); BILIRUBIN,DIRECT 0.2 mg/dL (0.0-0.4); BILIRUBIN,TOTAL 0.4 mg/dL (0.2-1.3); BLOOD UREA NITROGEN 25 mg/dL (7-20); CALCIUM 9.6 mg/dL (8.4-10.2); CARBON DIOXIDE 23 mmol/L (22-30); CHLORIDE 109 mmol/L (98-107); POTASSIUM 3.6 mmol/L (3.6-5.0); SODIUM 138.8 mmol/L (137-145); TOTAL PROTEIN 5.9 g/dL (6.3-8.2)
[2019-04-08 07:40] LABS: GLUCOSE 65 mg/dL (75-110)
[2019-04-08] MEDS: INSULIN LISPRO 100 UNIT/ML 3 ML VIAL SUBCUT SCH ×4 (08:06→23:35)
[2019-04-08 08:41] LABS: ABSOLUTE LYMPHOCYTES# (MANUAL) 79.1 10^3/uL (0.5-4.7); ABSOLUTE MONOCYTES # (MANUAL) 0.8 10^3/uL (0.1-1.4); BASOPHILS % (MANUAL) 0 % (0-2); EOSINOPHILS % (MANUAL) 0 % (0-6); LYMPHOCYTES % (MANUAL) 97 % (13-45); MONOCYTES % (MANUAL) 1 % (3-13); SEGMENTED NEUTROPHILS % (MAN) 2 % (42-78); TOTAL CELLS COUNTED 100
[2019-04-08 08:44] LABS: ANISOCYTOSIS 1+; OVALOCYTES SLIGHT; PLATELET COMMENT DECREASED; POIKILOCYTOSIS SLIGHT; TEAR DROP CELLS SLIGHT
[2019-04-08] MEDS: ENOXAPARIN SODIUM INJ 40 MG/0.4 ML DISP.SYRIN SUBCUT SCH (09:25)
[2019-04-08] MEDS: METOPROLOL SUCCINATE 25 MG TAB.SR.24H PO SCH (09:48)
[2019-04-08] MEDS: FAMOTIDINE 20 MG TABLET PO SCH ×2 (09:48→17:56)
[2019-04-08] MEDS: ASPIRIN 81 MG TABLET, ENT COATED PO SCH (09:48)
[2019-04-08] MEDS: CLOPIDOGREL BISULFATE 75 MG TABLET PO SCH (09:48)
[2019-04-08] MEDS: GLIMEPIRIDE 1 MG TABLET PO SCH ×3 (09:49→22:26)
[2019-04-08] MEDS: HYDROCHLOROTHIAZIDE 12.5 MG TABLET PO SCH (09:49)
[2019-04-08] MEDS: LOSARTAN POTASSIUM 50 MG TABLET PO SCH (09:49)
[2019-04-08] MEDS: METFORMIN HCL 500 MG TABLET PO SCH ×3 (09:50→22:25)
[2019-04-08] MEDS: NORMAL SALINE 1000 ML 1,000 ML IV PRN (09:51)
[2019-04-08 10:41] LABS: PATH REVIEW PATHOLOGIST REVIEWED
[2019-04-08] MEDS: TAMSULOSIN HCL 0.4 MG CAP.SR.24H PO SCH (17:56)
[2019-04-08 19:50] LABS: HEMATOCRIT 40.8 % (37.9-51.0); HEMOGLOBIN 12.6 g/dL (13.5-17.0); MEAN CORPUSCULAR HEMOGLOBIN 24.5 pg (27.0-33.4); MEAN CORPUSCULAR HGB CONC 30.9 g/dL (32.0-36.0); MEAN CORPUSCULAR VOLUME 79 fl (80-97); RED BLOOD COUNT 5.13 10^6/uL (4.35-5.55); RED CELL DISTRIBUTION WIDTH 16.1 % (11.5-14.0)
[2019-04-08 20:07] LABS: ABSOLUTE LYMPHOCYTES# (MANUAL) 74.1 10^3/uL (0.5-4.7); BASOPHILS % (MANUAL) 0 % (0-2); EOSINOPHILS % (MANUAL) 0 % (0-6); LYMPHOCYTES % (MANUAL) 95 % (13-45); MONOCYTES % (MANUAL) 0 % (3-13); SEGMENTED NEUTROPHILS % (MAN) 3 % (42-78); TOTAL CELLS COUNTED 100
[2019-04-08 20:08] LABS: PLATELET COMMENT DECREASED
[2019-04-08 20:09] LABS: SMUDGE CELLS PRESENT
[2019-04-08 20:12] LABS: ANISOCYTOSIS SLIGHT; PLATELET COUNT 15 10^3/uL (150-450); POIKILOCYTOSIS SLIGHT; WHITE BLOOD COUNT 76.4 10^3/uL (4.0-10.5)
[2019-04-08] MEDS ORDERED: INSULIN GLARGINE,HUM.REC.ANLOG 1,000 UNIT/10 ML VIAL SUBCUT SCH (22:00)
[2019-04-08] MEDS: SIMVASTATIN 40 MG TABLET PO SCH (22:26)
[2019-04-09 05:57] LABS: HEMATOCRIT 38.8 % (37.9-51.0); HEMOGLOBIN 12.1 g/dL (13.5-17.0); MEAN CORPUSCULAR HEMOGLOBIN 24.7 pg (27.0-33.4); MEAN CORPUSCULAR HGB CONC 31.1 g/dL (32.0-36.0); MEAN CORPUSCULAR VOLUME 80 fl (80-97); RED BLOOD COUNT 4.89 10^6/uL (4.35-5.55); RED CELL DISTRIBUTION WIDTH 16.4 % (11.5-14.0)
[2019-04-09 06:08] LABS: ALANINE AMINOTRANSFERASE 47 U/L (21-72); ALBUMIN 3.2 g/dL (3.5-5.0); ALKALINE PHOSPHATASE 64 U/L (38-126); ANION GAP 9 (5-19); ASPARTATE AMINO TRANSFERASE 36 U/L (17-59); BILIRUBIN,DIRECT 0.2 mg/dL (0.0-0.4); BILIRUBIN,TOTAL 0.3 mg/dL (0.2-1.3); BLOOD UREA NITROGEN 20 mg/dL (7-20); CALCIUM 8.3 mg/dL (8.4-10.2); CARBON DIOXIDE 22 mmol/L (22-30); CHLORIDE 107 mmol/L (98-107); GLUCOSE 76 mg/dL (75-110); POTASSIUM 3.5 mmol/L (3.6-5.0); SODIUM 138.1 mmol/L (137-145); TOTAL PROTEIN 5.6 g/dL (6.3-8.2)
[2019-04-09 06:26] LABS: ABSOLUTE MONOCYTES # (MANUAL) 3.7 10^3/uL (0.1-1.4); BASOPHILS % (MANUAL) 0 % (0-2); EOSINOPHILS % (MANUAL) 0 % (0-6); LYMPHOCYTES % (MANUAL) 83 % (13-45); MONOCYTES % (MANUAL) 5 % (3-13); SEGMENTED NEUTROPHILS % (MAN) 10 % (42-78); TOTAL CELLS COUNTED 100
[2019-04-09 06:28] LABS: ANISOCYTOSIS 1+; PLATELET COMMENT DECREASED; SMUDGE CELLS PRESENT
[2019-04-09 06:53] LABS: WHITE BLOOD COUNT 74.1 10^3/uL (4.0-10.5)
[2019-04-09 06:54] LABS: PLATELET COUNT 15 10^3/uL (150-450)
[2019-04-09] MEDS: INSULIN LISPRO 100 UNIT/ML 3 ML VIAL SUBCUT SCH ×2 (08:03→13:41)
[2019-04-09] MEDS: ENOXAPARIN SODIUM INJ 40 MG/0.4 ML DISP.SYRIN SUBCUT SCH (09:22)
[2019-04-09] MEDS: ASPIRIN 81 MG TABLET, ENT COATED PO SCH (09:35)
[2019-04-09] MEDS: CLOPIDOGREL BISULFATE 75 MG TABLET PO SCH (09:35)
[2019-04-09] MEDS: LOSARTAN POTASSIUM 50 MG TABLET PO SCH (09:35)
[2019-04-09] MEDS: HYDROCHLOROTHIAZIDE 12.5 MG TABLET PO SCH (09:35)
[2019-04-09] MEDS: FAMOTIDINE 20 MG TABLET PO SCH (09:35)
[2019-04-09] MEDS: METOPROLOL SUCCINATE 25 MG TAB.SR.24H PO SCH (09:35)
[2019-04-09] MEDS: NORMAL SALINE 1000 ML 1,000 ML IV PRN (09:38)
[2019-04-09] MEDS: METFORMIN HCL 500 MG TABLET PO SCH (13:44)
[2019-04-09] MEDS: GLIMEPIRIDE 1 MG TABLET PO SCH (13:44)
[2019-04-09 14:11] VITALS: BP 115/69
--- NOTE | 2019-04-09 14:59 | PDOC DISCHARGE SUMMARY ---
General - Admit/Disc Date/PCP Admission Date/Primary Care Provider: 04/06/19 14:00 SANAM DAS MD Discharge Date: 04/09/19 - Discharge Diagnosis (1) Hypercalcemia Is this a current diagnosis for this admission?: Yes (2) Thrombocytopenia Is this a current diagnosis for this admission?: Yes (3) Chronic lymphocytic leukemia Is this a current diagnosis for this admission?: Yes (4) CKD stage 3 due to type 2 diabetes mellitus Is this a current diagnosis for this admission?: Yes (5) T2DM (type 2 diabetes mellitus) Is this a current diagnosis for this admission?: Yes - Additional Information Home Medications: Simvastatin 40 mg PO QHS 08/16/14 Empagliflozin [Jardiance] 25 mg PO DAILY 04/06/19 Famotidine [Pepcid 20 mg Tablet] 20 mg PO BID 04/06/19 Glimepiride 2 mg PO BIDBS 04/06/19 Insulin Detemir [Levemir] 20 unit SQ DAILY MDD 30 units 04/06/19 Losartan/Hydrochlorothiazide [Hyzaar 100-12.5 Tablet] 1 each PO DAILY 04/06/19 Metformin HCl 1,000 mg PO BIDBS 04/06/19 Metoprolol Succinate [Toprol Xl 25 mg Tab.sr] 25 mg PO DAILY 04/06/19 Tamsulosin HCl [Flomax 0.4 mg Cap.sr] 0.4 mg PO DAILY 04/06/19 History of Present Illness History of Present Illness: NADIA RENTERIA is a 73 year old male, He has a history of chronic lymphocytic leukemia, diabetes mellitus type 2,, he had outpatient blood work drawn by the bee tender, the serum calcium was 12, the white cell count was 85,000 because of the abnormal laboratory data, patient was called by the bee tender for him to go to the emergency room in the emergency room was evaluated blood work revealed a pack acidemia with a serum calcium of 12 WBC was 8000. The intact PTH was low suggesting that the hypercalcemia is related to the CLL. But patient is not symptomatic Hospital Course Hospital Course: Patient was admitted for the management of hypercalcemia due to CLL, he was treated with intravenous pamidronate and also IV fluid. The hypercalcemia is normalized he also had thrombocytopenia, the most recent platelet count is 15,000, there is no evidence of hemorrage. There is no indication for platelet transfusion. He was seen by oncology, the low platelet count is related to his CLL, he will see oncology on Thursday to initiate chemotherapy today is Thursday. Physical Exam Vital Signs: Temp Pulse Resp BP Pulse Ox 97.6 F 77 16 115/69 99 04/09/19 11:00 04/09/19 11:00 04/09/19 11:00 04/09/19 11:00 04/09/19 11:00 Intake & Output 04/08/19 04/09/19 04/10/19 06:59 06:59 06:59 Intake Total 2105 2923 Output Total 1325 2400 Balance 780 523 Weight 64.3 kg 59.6 kg General appearance: PRESENT: no acute distress, well-developed, well-nourished Head exam: PRESENT: atraumatic, normocephalic Eye exam: PRESENT: conjunctiva pink, EOMI, PERRLA Ear exam: PRESENT: normal external ear exam Mouth exam: PRESENT: moist, tongue midline Neck exam: PRESENT: full ROM Respiratory exam: PRESENT: clear to auscultation cassandra Cardiovascular exam: PRESENT: RRR, +S1, +S2 Pulses: PRESENT: normal dorsalis pedis pul, +2 pedal pulses bilateral Vascular exam: PRESENT: normal capillary refill GI/Abdominal exam: PRESENT: normal bowel sounds, soft Rectal exam: PRESENT: deferred Neurological exam: PRESENT: alert, awake, oriented to person, oriented to place, oriented to time, oriented to situation, CN II-XII grossly intact Psychiatric exam: PRESENT: appropriate affect, normal mood Skin exam: PRESENT: dry, intact, warm Results Laboratory Results: 04/09/19 04:55 04/09/19 04:55 04/08/19 04/09/19 04/09/19 19:20 04:55 04:55 WBC 76.4 H* 74.1 H* RBC 5.13 4.89 Hgb 12.6 L 12.1 L Hct 40.8 38.8 MCV 79 L 80 MCH 24.5 L 24.7 L MCHC 30.9 L 31.1 L RDW 16.1 H 16.4 H Plt Count 15 L* 15 L* Seg Neutrophils % Not Reportable Not Reportable Lymphocytes % Not Reportable Not Reportable Monocytes % Not Reportable Not Reportable Eosinophils % Not Reportable Not Reportable Basophils % Not Reportable Not Reportable Absolute Neutrophils Not Reportable Not Reportable Absolute Lymphocytes Not Reportable Not Reportable Absolute Monocytes Not Reportable Not Reportable Absolute Eosinophils Not Reportable Not Reportable Absolute Basophils Not Reportable Not Reportable Sodium 138.1 Potassium 3.5 L Chloride 107 Carbon Dioxide 22 Anion Gap 9 BUN 20 Creatinine 1.17 Est GFR ( Amer) > 60 Est GFR (Non-Af Amer) > 60 Glucose 76 Calcium 8.3 L Total Bilirubin 0.3 AST 36 ALT 47 Alkaline Phosphatase 64 Total Protein 5.6 L Albumin 3.2 L 04/06/19 22:42 Clean Catch Midstream Urine Culture - Final Staph Coagulase Negative 04/06/19 04/06/19 04/06/19 17:26 17:26 17:26 Creatine Kinase 69 CK-MB (CK-2) 1.06 Troponin I < 0.012 NT-Pro-B Natriuret Pep 50 04/07/19 04/07/19 04/07/19 00:27 00:27 07:10 Creatine Kinase 57 52 L CK-MB (CK-2) 0.84 Troponin I < 0.012 NT-Pro-B Natriuret Pep 04/07/19 07:10 Creatine Kinase CK-MB (CK-2) 0.72 Troponin I < 0.012 NT-Pro-B Natriuret Pep Impressions: Chest X-Ray 04/06/19 16:45 IMPRESSION: NO ACUTE RADIOGRAPHIC FINDING IN THE CHEST. Qualifiers - * PATIENT BEING DISCHARGED WITH ANY OF THE FOLLOWING DIAGNOSIS: No VTE patient discharged on overlapping Therapy?: No Reason(s) for not prescribing Overlap Therapy:: Not indicated Stroke Pt being discharged on Anti-thrombolytic therapy?: No Reason(s) for not prescribing Anti-thrombolytic therapy:: Not indicated Stroke Pt being discharged on Anti-coagulation therapy?: No Reason(s) for not prescribing Anti-coagulation therapy:: Not indicated Stroke Pt being discharged on Statins?: No Reason(s) for not prescribing Statins therapy:: Not indicated MN Pt being discharged on Aspirin therapy?: No Reason(s) for not prescribing Aspirin therapy:: Not indicated MN Pt being discharged on Statins?: No Reason(s) for not prescribing Statin therapy:: Not indicated Reason(s) for not prescribing ACEI/ARBS:: Not indicated Acute Heart Failure - Is this a Heart Failure Patient?: No e) For LVEF <35%, discharged on Aldosterone antagonist?: N/A (LVEF > or = 35%)
== END 2019-04-09 17:18 | disposition home or self-care (01) ==
LOC: ER 11:32 → INTOOBSV 14:00 → OBSVTOIN 14:00 → EH 14:00 → 5 16:14
PROVIDERS: ADMIT Internal Medicine; ATTEND Internal Medicine
DX: E83.52 Hypercalcemia (principal); D69.6 Thrombocytopenia, unspecified; C91.10 Chronic lymphocytic leukemia of B-cell type not having achieved remission; I12.9 Hypertensive chronic kidney disease with stage 1 through stage 4 chronic kidney disease, or unspecified chronic kidney disease; E11.22 Type 2 diabetes mellitus with diabetic chronic kidney disease; N18.3 Chronic kidney disease, stage 3 (moderate); I25.10 Atherosclerotic heart disease of native coronary artery without angina pectoris; Z79.899 Other long term (current) drug therapy; Z79.4 Long term (current) use of insulin; Z95.5 Presence of coronary angioplasty implant and graft; Z79.82 Long term (current) use of aspirin
CPT/HCPCS: 99284; 96360; 96361; 82043; 82570; 80069; 36415 ×4; 87040; 87086; 84439; 82553 ×2; 82962 ×4; 82140; 82150; 82550 ×2; 83690; 83735; 84100; 84443; 85025 ×4; 85610; 85730; 80076 ×3; 80048 ×3; 80053; 81001; 84484 ×2; 83036; 82306; 80061; 83970; 83880; 71045; G0378 ×3; A9270 ×34; J7030 ×4; J2430; J1815

== ENCOUNTER → 2019-04-06 | Outpatient (CLI) | payer MEDICARE, BC ==
[2019-04-06 08:37] LABS: APPEARANCE,URINE CLEAR; BILIRUBIN,URINE NEGATIVE (NEGATIVE); COLOR,URINE YELLOW; GLUCOSE, URINE >=500 mg/dL (NEGATIVE); KETONES,URINE NEGATIVE (NEGATIVE); LEUKOCYTE ESTERASE,URINE NEGATIVE (NEGATIVE); NITRITE,URINE NEGATIVE (NEGATIVE); PROTEIN,URINE 100 mg/dL (NEGATIVE); URINE SPECIFIC GRAVITY 1.023; UROBILINOGEN,URINE NEGATIVE mg/dL (<2.0)
[2019-04-06 08:40] LABS: HEMATOCRIT 44.8 % (37.9-51.0); HEMOGLOBIN 13.8 g/dL (13.5-17.0); MEAN CORPUSCULAR HEMOGLOBIN 24.4 pg (27.0-33.4); MEAN CORPUSCULAR HGB CONC 30.7 g/dL (32.0-36.0); MEAN CORPUSCULAR VOLUME 79 fl (80-97); RED BLOOD COUNT 5.65 10^6/uL (4.35-5.55); RED CELL DISTRIBUTION WIDTH 15.8 % (11.5-14.0)
[2019-04-06 09:03] LABS: ABSOLUTE LYMPHOCYTES# (MANUAL) 75.3 10^3/uL (0.5-4.7); BASOPHILS % (MANUAL) 0 % (0-2); EOSINOPHILS % (MANUAL) 0 % (0-6); LYMPHOCYTES % (MANUAL) 94 % (13-45); MONOCYTES % (MANUAL) 0 % (3-13); SEGMENTED NEUTROPHILS % (MAN) 6 % (42-78); TOTAL CELLS COUNTED 100
[2019-04-06 09:04] LABS: PLATELET COMMENT DECREASED
[2019-04-06 09:05] LABS: ANISOCYTOSIS SLIGHT; PLATELET LARGE PRESENT
[2019-04-06 09:06] LABS: POIKILOCYTOSIS SLIGHT; POLYCHROMASIA SLIGHT; TEAR DROP CELLS SLIGHT
[2019-04-06 09:09] LABS: ALBUMIN 4.4 g/dL (3.5-5.0); ANION GAP 10 (5-19); BLOOD UREA NITROGEN 29 mg/dL (7-20); CARBON DIOXIDE 27 mmol/L (22-30); CHLORIDE 104 mmol/L (98-107); GLUCOSE 89 mg/dL (75-110); PHOSPHORUS 4.3 mg/dL (2.5-4.5); POTASSIUM 3.7 mmol/L (3.6-5.0); SODIUM 140.9 mmol/L (137-145)
[2019-04-06 09:09] LABS: PLATELET COUNT 60 10^3/uL (150-450)
[2019-04-06 09:16] LABS: WHITE BLOOD COUNT 80.1 10^3/uL (4.0-10.5)
[2019-04-06 09:33] LABS: CALCIUM 12.2 mg/dL (8.4-10.2)
[2019-04-07 08:39] LABS: PATH REVIEW PATHOLOGIST REVIEWED
[2019-04-07 12:36] LABS: CREATININE URINE 130.9 mg/dL (Not Estab.); MICROALBUMIN URINE 277.7 ug/mL (Not Estab.)
== END ==
LOC: OD 08:09
PROVIDERS: ATTEND Internal Medicine Nephrology
DX: I12.9 Hypertensive chronic kidney disease with stage 1 through stage 4 chronic kidney disease, or unspecified chronic kidney disease (principal); N18.3 Chronic kidney disease, stage 3 (moderate); E55.9 Vitamin D deficiency, unspecified; E11.22 Type 2 diabetes mellitus with diabetic chronic kidney disease
CPT/HCPCS: 36415; 80069; 81001; 82043; 82306; 82570; 83970; 85025

== ENCOUNTER → 2019-04-12 | Outpatient (CLI) | payer MEDICARE, BC ==
--- NOTE | 2019-04-13 10:41 | RADIOLOGY REPORT (SQ) ---
EXAM DESCRIPTION: PET CT SKULL/THIGH COMPLETED DATE/TIME: 04/12/2019 7:54 pm REASON FOR STUDY: C91.90 LYMPHOID LEUKEMIA, UNSPECIFIED NOT HAVING ACHIEVED REMISSION C91.90 LYMPHO ID LEUKEMIA, UNSPECIFIED NOT HAVING ACHIEVED RE COMPARISON: Chest abdomen pelvis CT 10/05/2017. RADIONUCLIDE AND DOSE: 11.22 mCi F18 FDG The route of agent administration: Intravenous FASTING BLOOD SUGAR: 72 mg/dl CONTRAST TYPE AND DOSE: No CT contrast given. TECHNIQUE: Blood glucose level was verified. Above dose of FDG was injected intravenously. 2-D seg mented attenuation correction images were obtained from the base of the skull to the midthighs. Nonc ontrast CT images were obtained for attenuation correction and fusion with emission images. CT image s were performed without oral or intravenous contrast and are not sensitive for parenchymal lesions. A series of overlapping emission PET images were obtained. Images reviewed and manipulated at [facility] work station by the radiologist. Images stored on PACS. LIMITATIONS: None. FINDINGS: HEAD AND NECK: No areas of abnormal metabolic activity in the soft tissues of the head and neck. CHEST: No areas of abnormal metabolic activity in the chest. ABDOMEN AND PELVIS: No areas of abnormal metabolic activity in the abdomen or pelvis. Expected physi ologic activity is present in the genitourinary system and bowel. PROXIMAL LOWER EXTREMITIES: No areas of abnormal metabolic activity in the soft tissues of the lower extremities. BONES: No abnormal metabolic activity in the visualized skeleton. ADDITIONAL CT FINDINGS: Bilateral shotty cervical lymph nodes measuring up to 1 cm in short axis. No bulky adenopathy. Mildly enlarged supraclavicular and bilateral axillary nodes not significantly changed. For example image 64 left axillary node 10 x 13 mm, unchanged from prior image 11. OTHER: No other significant findings. IMPRESSION: Non hypermetabolic cervical and axillary lymph nodes. Morphologically unchanged. TECHNICAL DOCUMENTATION: JOB ID: [id number] All Rights Reserved Reading location - IP/workstation name: [email or web address]
== END ==
LOC: RAD 17:10
PROVIDERS: ATTEND Internal Medicine Medical Oncology
DX: C91.10 Chronic lymphocytic leukemia of B-cell type not having achieved remission (principal)
CPT/HCPCS: 78815; A9552

== ENCOUNTER → 2019-09-17 | Outpatient (CLI) | payer MEDICARE, BC ==
[2019-09-17 10:29] LABS: ABSOLUTE BASOPHILS # (AUTO) 0.1 10^3/uL (0.0-0.2); ABSOLUTE MONOCYTES (AUTO) 0.8 10^3/uL (0.1-1.4); ABSOLUTE NEUT (AUTO) 3.4 10^3/uL (1.7-8.2); BASOPHILS % (AUTO) 0.7 % (0-2); EOSINOPHILS % (AUTO) 0.3 % (0-6); HEMATOCRIT 43.5 % (37.9-51.0); HEMOGLOBIN 13.8 g/dL (13.5-17.0); LYMPHOCYTES % (AUTO) 40.7 % (13-45); MEAN CORPUSCULAR HEMOGLOBIN 23.8 pg (27.0-33.4); MEAN CORPUSCULAR HGB CONC 31.7 g/dL (32.0-36.0); MEAN CORPUSCULAR VOLUME 75 fl (80-97); MONOCYTES % (AUTO) 11.5 % (3-13); PLATELET COUNT 145 10^3/uL (150-450); RED CELL DISTRIBUTION WIDTH 16.5 % (11.5-14.0); SEGMENTED NEUTROPHILS % (AUTO) 46.8 % (42-78); TOTAL CELLS COUNTED % (AUTO) 100 %; WHITE BLOOD COUNT 7.3 10^3/uL (4.0-10.5)
[2019-09-17 10:34] LABS: APPEARANCE,URINE CLEAR; BILIRUBIN,URINE NEGATIVE (NEGATIVE); COLOR,URINE YELLOW; GLUCOSE, URINE >=500 mg/dL (NEGATIVE); KETONES,URINE NEGATIVE (NEGATIVE); LEUKOCYTE ESTERASE,URINE NEGATIVE (NEGATIVE); NITRITE,URINE NEGATIVE (NEGATIVE); PROTEIN,URINE 30 mg/dL (NEGATIVE); URINE SPECIFIC GRAVITY 1.022; UROBILINOGEN,URINE NEGATIVE mg/dL (<2.0)
[2019-09-17 11:01] LABS: ALBUMIN 4.2 g/dL (3.5-5.0); ALKALINE PHOSPHATASE 57 U/L (38-126); ANION GAP 10 (5-19); ASPARTATE AMINO TRANSFERASE 20 U/L (17-59); BILIRUBIN,DIRECT 0.2 mg/dL (0.0-0.4); BILIRUBIN,TOTAL 0.4 mg/dL (0.2-1.3); BLOOD UREA NITROGEN 34 mg/dL (7-20); CALCIUM 9.6 mg/dL (8.4-10.2); CARBON DIOXIDE 28 mmol/L (22-30); CHLORIDE 102 mmol/L (98-107); CHOLESTEROL 143.78 mg/dL (0-200); GLUCOSE 123 mg/dL (75-110); POTASSIUM 4.5 mmol/L (3.6-5.0); TOTAL PROTEIN 6.9 g/dL (6.3-8.2); TRIGLYCERIDES 105 mg/dL (<150); URIC ACID 3.7 mg/dL (3.5-8.5)
[2019-09-17 11:12] LABS: DIRECT LDL 96 mg/dL (<100)
[2019-09-17 11:16] LABS: FREE T4 (FREE THYROXINE) 1.17 ng/dL (0.78-2.19)
[2019-09-17 11:30] LABS: THYROID STIMULATING HORMONE 0.76 uIU/mL (0.47-4.68)
[2019-09-19 14:37] LABS: MICROALBUMIN URINE 156.6 ug/mL (Not Estab.)
== END ==
LOC: OD 09:12
PROVIDERS: ATTEND Internal Medicine
DX: E11.42 Type 2 diabetes mellitus with diabetic polyneuropathy (principal)
CPT/HCPCS: 36415; 80053; 80061; 81001; 82043; 82570; 83036; 84439; 84443; 84550; 85025

== ENCOUNTER → 2019-11-14 | Outpatient (CLI) | payer MEDICARE, BC ==
[2019-11-14 09:35] LABS: HEMATOCRIT 42.9 % (37.9-51.0); HEMOGLOBIN 14.1 g/dL (13.5-17.0); MEAN CORPUSCULAR HEMOGLOBIN 23.9 pg (27.0-33.4); MEAN CORPUSCULAR HGB CONC 32.8 g/dL (32.0-36.0); MEAN CORPUSCULAR VOLUME 73 fl (80-97); PLATELET COUNT 160 10^3/uL (150-450); RED BLOOD COUNT 5.89 10^6/uL (4.35-5.55); RED CELL DISTRIBUTION WIDTH 19.8 % (11.5-14.0)
[2019-11-14 09:37] LABS: APPEARANCE,URINE CLEAR; BILIRUBIN,URINE NEGATIVE (NEGATIVE); COLOR,URINE YELLOW; GLUCOSE, URINE >=500 mg/dL (NEGATIVE); KETONES,URINE NEGATIVE (NEGATIVE); LEUKOCYTE ESTERASE,URINE NEGATIVE (NEGATIVE); NITRITE,URINE NEGATIVE (NEGATIVE); PROTEIN,URINE 100 mg/dL (NEGATIVE); URINE SPECIFIC GRAVITY 1.024; UROBILINOGEN,URINE NEGATIVE mg/dL (<2.0)
[2019-11-14 09:49] LABS: ALBUMIN 4.1 g/dL (3.5-5.0); ANION GAP 10 (5-19); BLOOD UREA NITROGEN 26 mg/dL (7-20); CALCIUM 9.6 mg/dL (8.4-10.2); CARBON DIOXIDE 27 mmol/L (22-30); CHLORIDE 102 mmol/L (98-107); GLUCOSE 99 mg/dL (75-110); PHOSPHORUS 3.8 mg/dL (2.5-4.5)
[2019-11-14 09:55] LABS: ABSOLUTE LYMPHOCYTES# (MANUAL) 3.3 10^3/uL (0.5-4.7); ABSOLUTE MONOCYTES # (MANUAL) 0.7 10^3/uL (0.1-1.4); BASOPHILS % (MANUAL) 1 % (0-2); EOSINOPHILS % (MANUAL) 0 % (0-6); LYMPHOCYTES % (MANUAL) 36 % (13-45); MONOCYTES % (MANUAL) 9 % (3-13); SEGMENTED NEUTROPHILS % (MAN) 49 % (42-78); TOTAL CELLS COUNTED 100
[2019-11-14 09:57] LABS: ANISOCYTOSIS 2+; PLATELET COMMENT ADEQUATE; PLATELET LARGE PRESENT; POIKILOCYTOSIS SLIGHT; POLYCHROMASIA SLIGHT
[2019-11-15 11:37] LABS: CREATININE URINE 133.4 mg/dL (Not Estab.); MICROALBUMIN URINE 245.2 ug/mL (Not Estab.)
== END ==
LOC: OD 09:00
PROVIDERS: ATTEND Internal Medicine Nephrology
DX: I12.9 Hypertensive chronic kidney disease with stage 1 through stage 4 chronic kidney disease, or unspecified chronic kidney disease (principal); N18.3 Chronic kidney disease, stage 3 (moderate); E11.22 Type 2 diabetes mellitus with diabetic chronic kidney disease; R80.9 Proteinuria, unspecified
CPT/HCPCS: 36415; 80069; 81001; 82043; 82306; 82570; 83970; 85025

== ENCOUNTER → 2020-08-20 | Outpatient (CLI) | payer MEDICARE, BC ==
[2020-08-20 09:33] LABS: ABSOLUTE EOSINOPHILS # (AUTO) 0.1 10^3/uL (0.0-0.6); ABSOLUTE MONOCYTES (AUTO) 0.7 10^3/uL (0.1-1.4); ABSOLUTE NEUT (AUTO) 2.8 10^3/uL (1.7-8.2); BASOPHILS % (AUTO) 0.5 % (0-2); EOSINOPHILS % (AUTO) 1.3 % (0-6); HEMATOCRIT 45.4 % (37.9-51.0); HEMOGLOBIN 14.6 g/dL (13.5-17.0); LYMPHOCYTES % (AUTO) 35.8 % (13-45); MEAN CORPUSCULAR HEMOGLOBIN 24.5 pg (27.0-33.4); MEAN CORPUSCULAR HGB CONC 32.3 g/dL (32.0-36.0); MEAN CORPUSCULAR VOLUME 76 fl (80-97); PLATELET COUNT 168 10^3/uL (150-450); RED BLOOD COUNT 5.97 10^6/uL (4.35-5.55); RED CELL DISTRIBUTION WIDTH 18.7 % (11.5-14.0); SEGMENTED NEUTROPHILS % (AUTO) 50.4 % (42-78); TOTAL CELLS COUNTED % (AUTO) 100 %; WHITE BLOOD COUNT 5.5 10^3/uL (4.0-10.5)
[2020-08-20 09:56] LABS: APPEARANCE,URINE CLEAR; BILIRUBIN,URINE NEGATIVE (NEGATIVE); COLOR,URINE YELLOW; GLUCOSE, URINE >=500 mg/dL (NEGATIVE); KETONES,URINE NEGATIVE (NEGATIVE); LEUKOCYTE ESTERASE,URINE NEGATIVE (NEGATIVE); NITRITE,URINE NEGATIVE (NEGATIVE); PROTEIN,URINE 100 mg/dL (NEGATIVE); URINE SPECIFIC GRAVITY 1.024; UROBILINOGEN,URINE NEGATIVE mg/dL (<2.0)
[2020-08-20 09:59] LABS: ANION GAP 12 (5-19); BLOOD UREA NITROGEN 25 mg/dL (7-20); CALCIUM 9.7 mg/dL (8.4-10.2); CARBON DIOXIDE 27 mmol/L (22-30); CHLORIDE 101 mmol/L (98-107); GLUCOSE 98 mg/dL (75-110); POTASSIUM 4.4 mmol/L (3.6-5.0)
[2020-08-21 11:37] LABS: CREATININE URINE 132.9 mg/dL (Not Estab.); MICROALBUMIN URINE 251.7 ug/mL (Not Estab.)
== END ==
LOC: OD 08:46
PROVIDERS: ATTEND Internal Medicine Nephrology
DX: I12.9 Hypertensive chronic kidney disease with stage 1 through stage 4 chronic kidney disease, or unspecified chronic kidney disease (principal); N18.30 Chronic kidney disease, stage 3 unspecified; E11.22 Type 2 diabetes mellitus with diabetic chronic kidney disease; R80.9 Proteinuria, unspecified
CPT/HCPCS: 36415; 80048; 81001; 82043; 82570; 85025